=== PATIENT | male | born 1980 | race Asian ===

== ENCOUNTER 2023-10-11 20:16 | Emergency (ER) | payer OTHER ==
[2023-10-11 20:31] VITALS: BMI 25.3
[2023-10-11 22:29] LABS: BASO % 0.4 % (0-2.0); EOS % 1.7 % (0-4.5); HEMATOCRIT 42.8 % (35.4-49); HEMOGLOBIN 14.2 GM/dL (11.7-16.9); LYMPH % 13.5 % (8-40); MCH 28.6 pg (25.7-33.7); MCHC 33.2 g/dl (32.0-35.9); MEAN CELL VOLUME 86.3 fl (80-96); MEAN PLT VOLUME 7.7 fl (7.5-11.1); MONO % 4.7 % (3.8-10.2); NEUT % 79.7 % (42.8-82.8); PLATELET COUNT 249 10^3/uL (134-434); RBC 4.95 M/mm3 (4.00-5.60); RDW 14.1 % (11.9-15.9); WHITE BLOOD COUNT 7.3 K/mm3 (4.0-10.0)
[2023-10-11 22:36] LABS: INR 1.05 (0.83-1.09); PROTHROMBIN TIME (PATIENT) 12.2 SEC (9.7-13.0)
[2023-10-11 22:39] LABS: ACTIVATED PTT 32.2 SECONDS (25.2-36.5)
[2023-10-11 22:51] LABS: POTASSIUM 4.5 mmol/L (3.5-5.1)
[2023-10-11 22:52] LABS: CALCIUM 8.6 mg/dL (8.5-10.1)
[2023-10-11 22:56] LABS: CREATININE 0.8 mg/dL (0.55-1.3)
[2023-10-11 22:58] LABS: BILIRUBIN,TOTAL 0.6 mg/dL (0.2-1); TOT PROT 7.3 g/dl (6.4-8.2)
[2023-10-11] MEDS: SODIUM CHLORIDE 1,000 ML IV STA (23:05)
[2023-10-11 23:31] VITALS: BP 122/59; PULSE 80; RESP 18; TEMP 98.1
== END 2023-10-12 01:24 | disposition home or self-care (01) ==
LOC: JER 20:16
PROC: 3E0337Z Introduction of Electrolytic and Water Balance Substance into Peripheral Vein, Percutaneous Approach (ICD-10-PCS; principal; 2023-10-11)
DX: R55 Syncope and collapse (principal); Z20.822 Contact with and (suspected) exposure to COVID-19
CPT/HCPCS: 0241U-QW; 36415; 71046-TC-FY; 80053; 84484; 85025; 85610; 85730; 93005; 93010; 99285-25